=== PATIENT | female | born 1970 | race African-American/Black ===

== ENCOUNTER 2021-04-13 18:11 | Emergency (ER) | payer OTHER ==
[~2021-04-13] VITALS: Ht 175.3 cm; Wt 68.0 kg
--- NOTE | 2021-04-14 14:30 | EKG ---
[facility] [address] [facility] [place], [place] [address] Signed Normal sinus rhythm Prolonged QT Abnormal ECG No previous ECGs available Confirmed by KEYUR FRANCO MD ([id number] on 04/14/2021 2:29:57 PM Electronically Signed By: KEYUR FRANCO MD 04/14/21 1430 PATIENT NAME: KORINA PRESSLEY Electrocardiogram DATE OF : 68 PHYSICIAN: KEYUR FRANCO MD REPORT #: [id number] REPORT IS CONFIDENTIAL AND NOT TO BE RELEASED WITHOUT AUTHORIZATION
== END 2021-04-14 13:50 | disposition home or self-care (01) ==
LOC: ED 18:11
DX: F23 Brief psychotic disorder (principal); F15.10 Other stimulant abuse, uncomplicated; F17.200 Nicotine dependence, unspecified, uncomplicated
CPT/HCPCS: 80053; 81001; 84443; 84703; 85025; 93005; 93010; 99285-25; A9270-GY; G0480